=== PATIENT | male | born 1975 | race Caucasian/White ===

== ENCOUNTER 2017-02-16 13:38 | Emergency (ER) | payer SELFPAY ==
[~2017-02-16 13:38] MED LIST: ALBUAER2; MEDLIST
[2017-02-16 13:45] VITALS: TEMP 36.9
[2017-02-16] MEDS ORDERED: VNTHFA/IN INH (14:07)
[2017-02-16] MEDS ORDERED: ALBUT/IPRATROP 3MG/0.5MG NEB 3 ML VIAL INH STA (14:10)
--- NOTE | 2017-02-16 14:38 | DIAGNOSTIC IMAGING REPORT ---
CHEST 2 VIEWS ROUTINE CLINICAL HISTORY: cough COMPARISON STUDY: No previous studies for comparison. FINDINGS: The cardiac and mediastinal contours are normal. There is no evidence of focal pulmonary consolidation. There is no evidence of failure. No pleural effusions are visualized.[ Slight accentuation of interstitial markings is felt to be secondary to technical factors given the patient's body habitus. IMPRESSION: No active disease in the chest. Electronically signed by: Ronny Brown M.D. 02/16/2017 2:37 PM Dictated Date/Time: 02/16/2017 2:37 PM
[2017-02-16] MEDS ORDERED: DOXY100C PO (14:56)
[2017-02-16] MEDS ORDERED: PRED50TA PO (14:56)
[2017-02-16 15:00] VITALS: BP 161/100; PULSE 93; O2SAT 91
--- NOTE | 2017-02-16 15:07 | EMERGENCY ROOM VISIT NOTE ---
History First contact with patient: 14:00 Chief Complaint: RESPIRATORY PROBLEMS Stated Complaint: BREATHING Nursing Triage Summary: I have asthma but I think it is now bronchitis. I smoke 1/2to 1 pack of cigarettes per day. My breathing has gotten worse over the last couple days. History of Present Illness The patient is a 41 year old male who presents to the Emergency Room with complaints of shortness of breath, wheezing and productive cough of clear sputum. The patient reports that his symptoms started 2 days ago. He denies any recent runny nose, sinus congestion or sore throat. The patient has a history of asthma. He has been using his albuterol inhaler without any relief he smokes one half to one pack of cigarettes daily. He has had bronchitis and pneumonia in the past. He denies any chest pain or shortness of breath. Review of Systems 10 system review was performed and was negative except for pertinent positives and negatives as indicated in history of present illness Past Medical/Surgical History Medical Problems: (1) Asthma (2) Tobacco Use Disorder Surgical Problems: (1) No history of previous surgery Family History FH: diabetes mellitus FH: heart disease Social History Smoking Status: Current Every Day Smoker Alcohol Use: occasionally Marital Status: Occupation Status: employed Current/Historical Medications Scheduled Albuterol Hfa (Ventolin Hfa), 2 PUFFS INH Q4H Doxycycline Hyclate (Vibramycin), 100 MG PO BID Prednisone (Prednisone), 50 MG PO DAILY Physical Exam Vital Signs Date Time Temp Pulse Resp B/P (MAP) Pulse Ox O2 Delivery O2 Flow Rate FiO2 02/16/17 13:52 94 Room Air 02/16/17 13:45 36.9 98 20 144/86 90 Room Air Nasal Cannula Physical Exam CONSTITUTIONAL: Healthy and well nourished. Alert and oriented X 3 with positive affect. Patient does not appear in any acute respiratory distress. He also had no cough while in the emergency department. HEENT: Normocephalic, atraumatic. Pupils equal, round and reactive. Ears and nares are clear without TM bulging or rhinorrhea. OROPHARYNX: No obvious posterior pharyngeal erythema or tonsillar hypertrophy/ exudates. NECK: Full active range of motion without discomfort. RESPIRATORY: The patient has diffuse expiratory wheezing in all tyson, without crackles, rhonchi or stridor. CARDIOVASCULAR: Regular rate and rhythm with no murmurs, rubs or gallops. MUSCULOSKELETAL: Full range of motion of all joints without discomfort. INTEGUMENTARY: No rash or other significant dermatologic conditions noted. NEUROLOGIC: No focal neurologic deficits noted. Medical Decision & Procedures ER Provider Diagnostic Interpretation: My interpretation of a two-view chest x-ray does not show any consolidations, pneumothorax or cardiomegaly. Radiologist report is as follows: CHEST 2 VIEWS ROUTINE CLINICAL HISTORY: cough COMPARISON STUDY: No previous studies for comparison. FINDINGS: The cardiac and mediastinal contours are normal. There is no evidence of focal pulmonary consolidation. There is no evidence of failure. No pleural effusions are visualized.[ Slight accentuation of interstitial markings is felt to be secondary to technical factors given the patient's body habitus. IMPRESSION: No active disease in the chest. Medications Administered Medications (Trade) Dose Ordered Sig/Mike Route Start Time Stop Time Status Last Admin Dose Admin Albuterol/ Ipratropium (Duoneb) 3 ml NOW STAT INH 02/16/17 14:10 02/16/17 14:13 DC 02/16/17 14:44 3 ML ED Course Patient history and physical exam were performed. Nurse's notes were reviewed. Vital signs were reviewed, showing an O2 saturation of 90% on room air. The patient is afebrile. He is borderline hypertensive. Pulse rate is normal. A two-view chest x-ray was normal. The patient was administered a unit dose DuoNeb treatment with moderate relief of his symptoms. The patient was provided a prescription for doxycycline and prednisone. The patient was instructed to refrain from smoking. He was encouraged to continue with albuterol 2 puffs every 4 hours as needed. He may also use additional OTC cough medicines and Mucinex as needed. He was encouraged to follow-up with [facility] within the next 3-5 days, returning to the emergency department sooner with any progressively worsening symptoms. The patient was also advised that his blood pressure is marginally elevated while in the emergency department, and should have his blood pressure rechecked. The patient was happy with plan of care, and voiced understanding of all discharge instructions. Medical Decision I suspect that the patient has a viral bronchitis given that his symptoms developed within the past 48 hours. His chest x-ray does not show any focal consolidations. He does have a history of asthma and abuses tobacco products. I do not suspect myocardial infarction or pulmonary embolus. Medication Reconcilliation Current Medication List: was personally reviewed by me Blood Pressure Screening Patient's blood pressure: Elevated blood pressure Blood pressure disposition: Referred to PCP Impression Primary Impression: Bronchitis Additional Impressions: Asthma Elevated blood pressure reading Departure Information Prescriptions Prednisone (Prednisone) 50 Mg Tab 50 MG PO DAILY for 4 Days, #4 TAB Prov: Bandar Barbosa PA 02/16/17 Doxycycline Hyclate (VIBRAMYCIN) 100 Mg Cap 100 MG PO BID for 10 Days, #20 CAP Prov: Bandar Barbosa PA 02/16/17 Referrals [facility] (PCP) Patient Instructions My [facility] Problem Qualifiers Additional Impressions: Asthma Asthma severity: mild persistent Asthma complication type: with acute exacerbation Qualified Codes: J45.31 - Mild persistent asthma with (acute) exacerbation
== END 2017-02-16 15:00 | disposition home or self-care (01) ==
LOC: C.EDB 13:42
DX: J45.31 Mild persistent asthma with (acute) exacerbation (principal); R03.0 Elevated blood-pressure reading, without diagnosis of hypertension; F17.210 Nicotine dependence, cigarettes, uncomplicated; Z83.3 Family history of diabetes mellitus; Z82.49 Family history of ischemic heart disease and other diseases of the circulatory system